=== PATIENT | male | born 1985 | race Caucasian/White ===

== ENCOUNTER 2024-12-29 11:07 | Emergency (ER) | payer MEDICAID, SELFPAY ==
--- OUTSIDE RECORDS SUMMARY | 2024-06-02 05:30 | XMS_ITS ---
Author Organization [facility] Address [address] [place] [address] Care Team Providers Care Junior Financial Analyst Name Role Phone Rebekah Molina Primary Care Provider Adelina Fofana Unavailable [phone] REASON FOR VISIT FILLING Encounters Encounter Location Date Provider Diagnosis [place] [address] [place] [address] 06/02/2024 Rebekah Molina Plan Of Treatment No Information Progress Notes * GILBERT BOOKERJIMBODOB:1985 (39 yo M)Acc No.[id number]:06/02/2024 Patient:?PENNY BOOKER :?Rebekah Molina DDSDOB:1985???Age:39 Y ???Sex:MaleDate:06/02/2024Phone:[phone]:[address] [place], [place] Subjective: * Chief Complaints: * F ILLING * Electronic signature of Rebekah Molina DDS on 12/29/2024 at 11:21 AM ESTSign off status: Pending * Provider: Gloria Molina DDS Date: 06/02/2024 Generated for Printing/Faxing/eTransmitting on:?12/29/2024 11:21 AM EST
--- OUTSIDE RECORDS SUMMARY | 2024-06-09 05:30 | XMS_ITS ---
Author Organization [facility] Address [address] [place] [address] Care Team Providers Care Electronics Hardware Design Engineer Name Role Phone Rebekah Molina Primary Care Provider [phone] Adelina Fofana Unavailable [phone] REASON FOR VISIT FILLING Encounters Encounter Location Date Provider Diagnosis [place] [address] [place] [address] 06/09/2024 Rebekah Molina Plan Of Treatment No Information Progress Notes * GILBERT BOOKERJIMBODOB:1985 (39 yo M)Acc No.[id number]:06/09/2024 Patient:?PENNY BOOKER :?Rebekah Molina DDSDOB:1985???Age:39 Y ???Sex:MaleDate:06/09/2024Phone:[phone]:[address], [place] Subjective: * Chief Complaints: * F ILLING * Electronic signature of Rebekah Molina DDS on 12/29/2024 at 11:20 AM ESTSign off status: Pending * Provider: Gloria Molina DDS Date: 0 06/09/2024 Generated for Printing/Faxing/eTransmitting on:?12/29/2024 11:20 AM EST
[2024-12-29] VITALS (20 sets, daily range): BP systolic 127–156; BP diastolic 68–90; PULSE 67–114; TEMP 36.5; O2SAT 95–99; BMI 21.7
--- OUTSIDE RECORDS SUMMARY | 2024-12-29 11:21 | XMS_ITS | Clinical Summary ---
Author Organization [facility] Address [address] [place] [address] Care Team Providers Care Heavy Machinery Operator Name Role Phone Arnaldo Ace Unavailable Unavailable Arnaldo Ace DO Unavailable [phone] Allergies Active AllergyReactionsCriticalityNoted IykgZondbmatRawybytyfxhDaveecc47/17/2021 Other reaction(s): Unknown Other reaction(s): Unknown Medications No known medications Active Problems No known active problems Social History Tobacco UseTypesPacks/DayYears UsedDateSmoking Tobacco: NeverSmokeless Tobacco: Never Tobacco Cessation:Counseling Given: Not Answered Area Deprivation IndexAnswerDate RecordedNational Score (1-100), lower number is lower ppwe822401/19/2023State Score (1-10), lower number is lower quer00903/22/2022 Data from: https://www.neighborhoodatlas.[facility]/. Last address used for [address] 01/19/2023Sex and Gender InformationValueDate RecordedSex Assigned at BirthNot on fileLegal NrxNjot77/04/2023 1:23 PM EST Gender IdentityNot on fileSexual OrientationNot on file Last Filed Vital Signs Vital SignReadingTime TakenCommentsBlood Igukdahj027/8101/19/2023 3:58 PM EST Rpxzd498201/19/2023 3:58 PM TFQWftvfbhmmcu88.6 ??C (97.8 ??F)01/19/2023 3:58 PM ESTRespiratory Rate--Oxygen Saturation--Inhaled Oxygen Concentration--Weight-- Height--Body Mass Index-- Plan of Treatment Health MaintenanceDue DateLast DoneCommentsAnxiety Xbtkqaebr82/28/2002Depression Mvognfdei10/28/2002HIV Hulhcebpo30/28/2002Hepatitis C Jdtdezrln60/28/2002 DTaP,Tdap,Td Vaccine (1 - Tdap)01/06/2003Hepatitis B Vaccine (1 of 3 - 19+ 3- dose series)01/06/2003HPV Vaccine (1 - 3-dose SCDM series)01/06/2011Lipid Cbsohsklq32/28/2019Covid-19 Vaccine (1 - 2024- season)2024Influenza Vaccine (#1)2024 Insurance Care Teams Team MemberRelationshipSpecialtyStart DateEnd Date Arnaldo Ace Rqpcqscqr07/5/23 Arnaldo Ace DO DivwuwndoNvrijaqbici67/6/23
--- OUTSIDE RECORDS SUMMARY | 2024-12-29 11:21 | XMS_ITS | Patient Health Record ---
Author Organization [facility] Address [address] [place] [address] Care Team Providers Care Appian Developer Name Role Phone Rebekah Molina Primary Care Provider Adelina Fofana Unavailable Dr. Mert Ramey Unavailable [phone] Reason For Referral No Information Encounters Encounter Location Date Provider Diagnosis [facility] [address] [place] [address] 05/25/2024 [facility] [place] [address]/03/2024 [facility] [place] [address]/07/2024[facility] [place] [address]/[facility] for dental examination and cleaning with abnormal findings Z01.21 ; Disturbances in tootheruption K00.6 ; Other dental procedure status Z98.818 ; Dental caries on pit and fissure surface pe netrating into dentin K02.52 ; Complete loss of teeth, unspecified cause, class I K08.101 ; Partialloss of teeth, unspecified cause, class I K08.401 and Necrosis of pulp K04.1F Wdgqmoz309 [facility] [place] [address] [facility] examination and cleaning with abnormal findings Z01.21FHS Ctru[address]69 [facility] [place] [address] 04/13/2024Fiorella Benigno CastilloDental caries on pit and fissure surface penetrating into dentin K02.52S [address] [place] [address] 05/23/2024[facility] GholekarDental caries on pit and fissure surface penetrating into dentin K02.52FHS [address] [place] [address]/ Adelina Benigno CastilloS [address] [place] [address] 06/28/2024[facility]karTrinity Healthk[address] [place] [address] 07/29/2024[facility] [address] [place] [address] 08/30/2024Joseph RizkOther dental procedure status Z98.818[facility] [address] [place] [address]/Joseph RizkComplete loss of teeth, unspecified cause, class I K08.101 and Partial loss of teeth, unspecified cause, class I K08.401FHS [address] [place] [address]/ [facility]Enc[facility] for dental examination and cleaning with abnormal findings Z01.21 Assessments Encounter Date Diagnosis (ICD Code) Assessment Notes Treatment Notes Treatment Clinical Notes Section Notes 08/30/2024 Other dental procedure status (I CD-10 - Z98.818) 09/30/2024omplete loss of teeth, unspecified cause, class I (ICD-10 - K08.101) 02/09/2024Encounter for dental examination and cleaning with abnormal findings (ICD-10 - Z01.21)02/23/2024Encounter for dental examination and cleaning with abnormal findings (ICD-10 - Z01.21)03/02/2024Encounter for dental examination and cleaning with abnormal findings (ICD-10 - Z01.21)04/13/2024Dental caries on pit and fissure surface penetrating into dentin (ICD-10 - K02.52)05/23/2024 Dental caries on pit and fissure surface penetrating into dentin (ICD-10 - K02.52)02/09/2024isturbances in tooth eruption (ICD-10 - K00.6)09/30/2024 Partial loss of teeth, unspecified cause, class I (ICD-10 - K08.401)02/09/2024 Other dental procedure status (ICD-10 - Z98.818)02/09/2024ental caries on pit and fissure surface penetrating into dentin (ICD-10 - K02.52)02/09/2024omplete loss of teeth, unspecified cause, class I (ICD-10 - K08.101)02/09/2024artial loss of teeth, unspecified cause, class I (ICD-10 - K08.401)02/09/2024Necrosis of pulp (ICD-10 - K04.1) Plan Of Treatment No Information Insurance Providers Payer Name Payer Address Payer Phone Subscriber Number Group Number Insured Name Patient Relationship to Insured Coverage Start Date Coverage End Date Dental Anthem [place] Medicaid [address] [address] [place] [address] [id number] ANOHMAGI [id number] PENNY BOOKER Self - patient is the insured Dental Wrap [facility] [address] [place] [phone] [id number] BOOKERelf - patient is the [id number] 2024Dental [place] DQ Terminated [address] [place] [id number] TIFFANY BOOKERelf - patient is the [id number] Wrap [facility] [place] BCBS Termed [address] [place] [phone] [id number], MATTHEWSelf - patient is the [id number] 2022 2024ental Anthem [place] MedicaidPO [address] [address] [place] [address] [phone], MATTHEWSelf - patient is the [id number] 2024 2024
--- OUTSIDE RECORDS SUMMARY | 2024-12-29 11:21 | XMS_ITS | Clinical Summary ---
Author Organization [facility] Address [address] [place] [address] Care Team Providers Care Non Destructive Evaluation Specialist Name Role Phone Zack Wise MD, [facility] Primary Care Provider + Allergies Active AllergyReactionsCriticalityNoted KbiqTduugkjmSkmwmasekxbHvvijqb95/17/2021 Other reaction(s): Unknown Medications MedicationSigDispense QuantityRefillsLast FilledStart DateEnd DateStatus famotidine (Pepcid) 20 mg tablet Take 20 mg by mouth twice a day.04/26/2022ctive meloxicam (Mobic) 15 mg tablet 12/22/2022ctive OLANZapine zydis (ZyPREXA) 5 mg disintegrating tablet Take 5 mg by mouth at bedtime.Active Active Problems ProblemNoted DateDiagnosed DateClosed displaced fracture of base of second metacarpal bone of right hand with routine raijbau68/Hand pain, right Social History Tobacco UseTypesPacks/DayYears UsedDateSmoking Tobacco: FormerCigarettes Smokeless Tobacco: Former Tobacco Cessation:Counseling Given: Not Answered Alcohol UseStandard Drinks/WeekCommentsNever0 (1 standard drink = 0.6 oz pure alcohol)Humiliation, Afraid, Rape, and Kick questionnaireAnswerDate Recorded Within the last year, have you been afraid of your partner or ex-partner?No 03/12/2023Within the last year, have you been humiliated or emotionally abused in other ways by your partner or ex-partner?No03/12/2023Within the last year, have you been kicked, hit, slapped, or otherwise physically hurt by your partner or ex-partner?No03/12/2023Within the last year, have you been raped or forced to have any kind of sexual activity by your partner or ex-partner?No03/12/2023HQ-2 AnswerDate RecordedPatient Health Questionnaire-2 Khfwx942UT Safety & EnvironmentAnswerDate RecordedWithin the last year, have you been afraid of your partner or ex-partner?No03/12/2023Within the last year, have you been humiliated or emotionally abused in other ways by your partner or ex-partner?No03/12/2023 Within the last year, have you been kicked, hit, slapped, or otherwise physically hurt by your partner or ex-partner?No03/12/2023Within the last year, have you been raped or forced to have any kind of sexual activity by your part ner or ex-partner?No03/12/2023hysically or Sexually AbusedNot on file03/12/2023 Sex and Gender InformationValueDate RecordedSex Assigned at BirthNot on file Legal LtnIcta76/15/2023 1:39 PM ESTGender IdentityNot on fileSexual Orientation Not on file Last Filed Vital Signs Vital SignReadingTime TakenCommentsBlood Pressure--Pulse--Temperature-- Respiratory Rate--Oxygen Saturation--Inhaled Oxygen Concentration--Nxygub14.9 kg (174 lb)03/12/2023 9:03 AM IZZZlxlcu735.9 cm (6')03/12/2023 9:03 AM ESTBody Mass Index23.6003/12/2023 9:03 AM EST Plan of Treatment Health MaintenanceDue DateLast DoneCommentsDepression Bhualozih15/28/1996 Varicella Vaccines (1 of 2 - 13+ 2-dose series)01/06/1997Hepatitis B Vaccines (1 of 3 - 19+ 3-dose series)01/06/2003Adult Rimnusj7901/06/2006HPV Vaccines (1 - 3- dose SCDM series)01/06/2011Influenza Vaccine (#1)2024Zoster Vaccines (1 of 2)01/06/2034HIB VaccinesAged OutNo longer eligible based on patient's age to complete this topicIPV VaccinesAged OutNo longer eligible based on patient's age to complete this topicMeningococcal B VaccineAged OutNo longer eligible based on patient's age to complete this topicMeningococcal VaccineAged OutNo longer eligible based on patient's age to complete this topicPneumococcal Vaccine: Pediatrics (0 to 5 Years) and At-Risk Patients (6 to 64 Years)Aged OutNo longer eligible based on patient's age to complete this topicRotavirus VaccinesAged Out No longer eligible based on patient's age to complete this topic Insurance Care Teams Team MemberRelationshipSpecialtyStart DateEnd Megha Dixon Jr., MD [address] [place] [address] PCP - Ltzxanu55/17/23
--- OUTSIDE RECORDS SUMMARY | 2024-12-29 11:21 | XMS_ITS | Clinical Summary ---
Author Organization [facility] Address [address] [place] [address] Care Team Providers Care Film Numberer Name Role Phone Ian Dixon DO Primary Care Provider [phone] Allergies Active AllergyReactionsCriticalityNoted DateCommentsBee VenomAnaphylaxisHigh 9398FeqsfipvjuwBpohgwd16/13/2023 Medications MedicationSigDispense QuantityRefillsLast FilledStart DateEnd DateStatus Toprol XL 25 MG 24 hr tablet Take 25 mg by mouth5Active pantoprazole (ProtoNix) 40 MG EC tablet Indications:Gastroesophageal reflux disease without esophagitisTake 1 tablet (40 mg) by mouth in the morning. Take before meals. Do not crush, chew, or split. 30 tablet 5Active Active Problems ProblemNoted DateDiagnosed EnbaYperwqm21/23/2024Closed displaced fracture of base of second metacarpal bone of right hand with routine hvlovvo5401/27/2023Hand pain, right01/27/2023 Encounters DateTypeDepartmentCare LkakCfangdxcqom63/20/2025 11:30 AM EDTAncillary Procedure [facility] [address] [facility] [address] [place] [address] Joint pain in both hands11/28/2024 10:40 AM EDTOffice Visit [facility] [address] [facility] [address] [place] [address] Lon Jimenez PA Joint pain in both hands (Primary Dx); Mitral valve prolapse; Other fatigue; Gastroesophageal reflux disease without esophagitis; Lrrfqzqwoojaha32/20/2025Results Follow-Up [facility] [address] [facility] [address] [place] [address] Lon Jimenez PA XR hand 3+ views right, CBC and differential, Comprehensive metabolic panel, Additional followed-upresults: 5Bamboo flowsheet [facility] [address] [place] [address] Lon Jimenez PA 11/28/20247568Pfcddu805Abstract [facility] [address] [place] [address] Ian Dixon DO from Last 3 Months Family History RelationNameStatusCommentsFatherAliveMotherAlive Social History Tobacco UseTypesPacks/DayYears UsedDateSmoking Tobacco: FormerCigarettesQuit: 02/09/2013Smokeless Tobacco: FormerQuit: 02/10/2020 Tobacco Cessation:Counseling Given: Yes Alcohol UseStandard Drinks/WeekCommentsNever0 (1 standard drink = 0.6 oz pure alcohol)chocolate, coffeePHQ-2AnswerDate RecordedPatient Health Questionnaire-2 Hleky990Sex and Gender InformationValueDate RecordedSex Assigned at BirthNot on fileLegal YkaSvat5004/23/2022 7:03 PM EDTGender IdentityNot on file Sexual OrientationNot on file Last Filed Vital Signs Vital SignReadingTime TakenCommentsBlood Sgkcyupv534/7410 10:55 AM EDT Hipuy281311/28/2024 10:55 AM DKDKxjrhpctzli87.9 ??C (98.4 ??F)11/28/2024 10:55 AM EDTRespiratory Rate--Oxygen Gxqokfnxhi77%11/28/2024 10:55 AM EDTInhaled Oxygen Concentration--Etequt06.8 kg (167 lb)11/28/2024 10:55 AM XWLOoxitv044.4 cm (6' 1 )11/28/2024 10:55 AM EDTBody Mass Index22.031 10:55 AM EDT Plan of Treatment Health MaintenanceDue DateLast DoneCommentsPneumococcal Vaccine: Pediatrics (0 to 5 Years) and At-Risk Patients (6 to 64 Years) (1 of 2 - PCV)01/06/2003COVID- 19 Vaccine (1 - season)2024Influenza Vaccine (#1)2024 Procedures Procedure NamePriorityDate/TimeAssociated DiagnosisCommentsANA SCREEN W/REFLEX Suagwol1311/28/2024 12:21 PM EDT Joint pain in both hands Mitral valve prolapse Other fatigue Gastroesophageal reflux disease without esophagitis Polyarthralgia RHEUMATOID AJCVAFWwhkvae23/20/2025 12:21 PM EDT Joint pain in both hands Mitral valve prolapse Other fatigue Gastroesophageal reflux disease without esophagitis Polyarthralgia SED RATE BY MODIFIED EGOPOKJQKMZlbthyx49/20/2025 12:21 PM EDT Joint pain in both hands Mitral valve prolapse Other fatigue Gastroesophageal reflux disease without esophagitis Polyarthralgia COMPREHENSIVE METABOLIC HXJITQzavifs30/20/2025 12:21 PM EDT Joint pain in both hands Mitral valve prolapse Other fatigue Gastroesophageal reflux disease without esophagitis Polyarthralgia CBC (INCLUDES DIFF/PLT)Rkjvqwe7111/28/2024 12:21 PM EDT Joint pain in both hands Mitral valve prolapse Other fatigue Gastroesophageal reflux disease without esophagitis Polyarthralgia XR HAND 3+ VIEWS CWZSFXhsevaj93/20/2025 11:37 AM EDT Joint pain in both hands from Last 3 Months Results * Sedimentation rate, automated (11/28/2024 12:21 PM EDT)ComponentValueRef Range Test MethodAnalysis TimePerformed AtPathologist SignatureSed Rate-Hpzkkwqxdd72 - 15 mm/hrLABCORPSpecimen (Source)Anatomical Location / LateralityCollection Method / VolumeCollection TimeReceived TimeBloodVenous blood specimen / Hybvxmn0011/28/2024 12:21 PM EDT1 Narrative [facility] - 11/29/2024 3:07 PM EDT Performed at: 01 - [facility] [address], [address], [place], [place] ??[id number] Cell Attendant: Dyana Jovel MD, Phone: ??[phone] Authorizing ProviderResult TypeResult StatusLon QUINN BLOOD ORDERABLES Final ResultPerforming OrganizationAddressCity/State/ZIP CodePhone Number [facility] * CBC and differential (11/28/2024 12:21 PM EDT)ComponentValueRef RangeTest MethodAnalysis TimePerformed AtPathologist SignatureWBC6.03.4 - 10.8 x10E3/uL LABCORPRBC5.294.14 - 5.80 x10E6/fIYGRBOYYWiq69.913.0 - 17.7 g/nASVUXLOWNcn51.9 37.5 - 51.0 %XEGGOVSMHM0502 - 97 gPTSOJBXEEAS26.226.6 - 33.0 jxNNAEKPCLIVV04.2 31.5 - 35.7 g/mZEDMQCAVHFN82.211.6 - 15.4 %RTKQTSDKualyufic213818 - 450 x10E3/sEQJRQCMMAwtkwuuavgt23Jpf Estab. %MUZCKLDMsygci50Ain Estab. %[facility] Czsqhossa1Aax Estab. %LWGGXNBQwy9Bkz Estab. %JYFXHYAPxfkt8Lqd Estab. %[facility] Neutrophils Abs3.71.4 - 7.0 x10E3/uLLABCORPLymphs Abs1.60.7 - 3.1 x10E3/uL [facility]ABCORPMonocytesAbs0.50.1 - 0.9 x10E3/uLLABCORPEos Abs0.20.0 - 0.4 x10E3/uL [facility]ABC[facility]PBaso Abs0.10.0 - 0.2 x10E3/uLLABCORPImmature Myjzwkmonrgd4Bdi Estab. % [facility]ABCORPImmature Grans Abs0.00.0 - 0.1 x10E3/uLLABCORPSpecimen (Source) Anatomical Location / LateralityCollection Method / VolumeCollection Time Received TimeBloodVenous blood specimen / Jdmfrzl7311/28/2024 12:21 PM EDT 11/28/2024 Narrative [facility] - 11/29/2024 3:07 PM EDT Performed at: 01 - [facility] [address], [address], [place], [place] ??[id number] Cell Attendant: Dyana Jovel MD, Phone: ??[phone] Authorizing ProviderResult TypeResult StatusLon Jimenez PALAB BLOOD ORDERABLES Final ResultPerforming OrganizationAddressCity/State/ZIP CodePhone Number [facility] * Rheumatoid factor (11/28/2024 12:21 PM EDT)ComponentValueRef RangeTest Method Analysis TimePerformed AtPathologist SignatureRHEUMATOID FACTOR<10.0<14.0 IU/mLLABCORPSpecimen (Source)Anatomical Location / LateralityCollection Method / VolumeCollection TimeReceived TimeBloodVenous blood specimen / Unknown 11/28/2024 12:21 PM EDT1 Narrative [facility] - 11/29/2024 3:07 PM EDT Performed at: 02 - [address] ??[id number] Cell Attendant: David Matamoros PhD, Phone: ??[phone] Authorizing ProviderResult TypeResult StatusLon Jimenez PALAB BLOOD ORDERABLES Final ResultPerforming OrganizationAddressCity/State/ZIP CodePhone Number [facility] * VINICIUS (11/28/2024 12:21 PM EDT)ComponentValueRef RangeTest MethodAnalysis Time Performed AtPathologist SignatureANA DIRECTNegativeNegativeLABCORPSpecimen (Source)Anatomical Location / LateralityCollection Method / VolumeCollection TimeReceived TimeBloodVenous blood specimen / Qqmptdq9611/28/2024 12:21 PM EDT 11/28/2024 Narrative [facility] - 11/29/2024 3:07 PM EDT Performed at: 02 - [address] ??[id number] Cell Attendant: David Matamoros PhD, Phone: ??[phone] Authorizing ProviderResult TypeResult StatusLon Jimenez PALAB BLOOD ORDERABLES Final ResultPerforming OrganizationAddressCity/State/ZIP CodePhone Number [facility] * (ABNORMAL) Comprehensive metabolic panel (11/28/2024 12:21 PM EDT)Component ValueRef RangeTest MethodAnalysis TimePerformed AtPathologist SignatureGlucose 8370 - 99 mg/aAMVFMJXDSKC815 - 24 mg/dLLABCORPCreat0.900.76 - 1.27 mg/dL BYTOMABLPLH976>59 mL/min/1.73LABC[facility]PBUN/Creat Mjnlp641 - 06SAUJQRAYenwms637236 - 144 mmol/[facility]ABC[facility]PPotassium4.53.5 - 5.2 mmol/OMKDEYWYQoilqpyl3477 - 106 mmol/[facility]ABCORPCarbon Maysbjk83(H)20 - 29 mmol/SSENXDZIElxdeko91.18.7 - 10.2 mg/dLLABCORPProtein Total7.66.0 - 8.5 g/dLLABCORPAlbumin5.04.1 - 5.1 g/dL [facility]PGlobulin Total2.61.5 - 4.5 g/dLLABCORPBili Total0.70.0 - 1.2 mg/dL [facility]ABCORPAlk Mltjkjuqcme9406 - 123 IU/IZRQYYNQPYL5665 - 59 IU/RVEXZZFZUEO049 - 50 IU/[facility]PSpecimen (Source)Anatomical Location / LateralityCollection Method / VolumeCollection TimeReceived TimeBloodVenous blood specimen / Ljgnswk7711/28/2024 12:21 PM EDT1 Narrative [facility] - 11/29/2024 3:07 PM EDT Performed at: 01 - [place] [address] [facility], [address], [place], [place] ??[id number] Cell Attendant: Dyana Jovel MD, Phone: ??[phone] Authorizing ProviderResult TypeResult StatusRynithya QUINN BLOOD ORDERABLES Final ResultPerforming OrganizationAddressCity/State/ZIP CodePhone Number [facility] * XR hand 3+ views right (11/28/2024 11:37 AM EDT)Anatomical RegionLaterality ModalityUpper Extremities, HandRightRadiographic ImagingSpecimen (Source) Anatomical Location / LateralityCollection Method / VolumeCollection Time Received Time11/28/2024 12:54 PM EDT Impressions 11/28/2024 12:55 PM EDT No acute findings. ELECTRONICALLY SIGNED BY: Ke Horner MD Narrative 11/28/2024 12:55 PM EDT Right hand 3 views. HISTORY: Chronic pain for several years becoming progressive. FINDINGS: No acute fracture, dislocation, or bone lesions identified. Possible remote healed fracture, right fifth metacarpal. Procedure Note Ke Horner MD - 11/28/2024 Right hand 3 views. HISTORY: Chronic pain for several years becoming progressive. FINDINGS: No acute fracture, dislocation, or bone lesions identified. Possibleremote healed fracture, right fifth metacarpal. IMPRESSION: No acute findings. ELECTRONICALLY SIGNED BY: Ke Horner MD Authorizing ProviderResult TypeResult StatusLon Jimenez PAIMG XR PROCEDURES Final Result from Last 3 Months Insurance Care Teams Team MemberRelationshipSpecialtyStart DateEnd Date Ian Dixon DO [address] [facility] [address] [place] [address] PCP - GeneralFamily Medicine06/17/22
--- OUTSIDE RECORDS SUMMARY | 2024-12-29 11:21 | XMS_ITS | Clinical Summary ---
Author Organization [facility] Address [id number] [address] [place] [address] Care Team Providers Care Clinical Laboratory Aides Teacher Name Role Phone No Pcp, No Pcp Primary Care Provider Unavailabl e Allergies Active AllergyReactionsCriticalityNoted CubxFmeaslpjVzicvzqyabn89/17/2021 Other reaction(s): Unknown Medications MedicationSigDispense QuantityRefillsLast FilledStart DateEnd DateStatus ondansetron ODT (ZOFRAN ODT) 4 mg disintegrating tablet Dissolve 1 tablet (4 mg total) on tongue every 8 (eight) hours as needed for nausea for up to 10 doses. 10 tablet 04/26/2022ctive famotidine (PEPCID) 20 mg tablet Take 1 tablet (20 mg total) by mouth in the morning and 1 tablet (20 mg total) before bedtime. 20 tablet 04/26/2022ctive Social History Tobacco UseTypesPacks/DayYears UsedDateSmoking Tobacco: Never AssessedAlcohol UseStandard Drinks/WeekCommentsNot Currently0 (1 standard drink = 0.6 oz pure alcohol)ChildcareAnswerDate UnhbbzakVpabukpvdWzzmaxy29/12/2019EmploymentAnswer Date CcidsuhvNrbytozbeuRewwsvu18/12/2019Hunger ScreeningAnswerDate Recorded Within the past 12 months we worried whether our food would run out before we got money to buy more.Never True04/25/2022Within the past 12 months the food we bought just didn't last and we didn't have money to get more.Never True 04/25/2022Sex and Gender InformationValueDate RecordedSex Assigned at BirthNot on fileLegal BygEtgv6709/14/2014 11:55 AM EDTGender IdentityNot on fileSexual OrientationNot on file Last Filed Vital Signs Vital SignReadingTime TakenCommentsBlood Qnjqojoj101/8804/26/2022 12:50 AM EDT Suvga196804/26/2022 12:50 AM JETNsrhskcuacv39.7 ??C (98 ??F)04/25/2022 9:27 PM EDT Respiratory Gnca735304/26/2022 12:50 AM EDTOxygen Uewgejjres10%04/26/2022 12:50 AM EDTInhaled Oxygen Concentration--Oewxdc73.4 kg (175 lb)04/25/2022 9:10 PM EDT Nckdlg629.4 cm (6' 1 )04/25/2022 9:10 PM EDTBody Mass Index23.0904/25/2022 9:10 PM EDT Plan of Treatment Not on file Medical Devices Not on file Insurance Care Teams Team MemberRelationshipSpecialtyStart DateEnd Date No Pcp, [place] [address] [facility]
--- NOTE | 2024-12-29 11:27 | ECG_ITS ---
[facility] Test Date: 2024-12-29 Pat Name: PENNY BOOKER Department: Room: - Gender: Male Shroud Line Tier: : 1985 Requested By: Order Number: [id number] Reading MD: OMKAR LANZA M.D. Measurements Intervals Magazine Rate: 96 P: 85 MO: 162 QRS: 87 QRSD: 90 T: 79 QT: 352 QTc: 405 Interpretive Statements 1100 Sinus rhythm 9110 normal ECG Compared to ECG 12/12/2019 08:20:17 ST (T wave) deviation no longer present Electronically Signed On 12-29-2024 19:21:49 EST by OMKAR LANZA M.D.
--- NOTE | 2024-12-29 11:27 | XR_ITS ---
The [address] [address] Patient Name: PENNY BOOKER MRN: [id number] date: 1985 Sex: M Assigned Patient Location: ER Current Patient Location: ER Accession/Order Number: [id number] Exam Date: 12/29/2024 11:35 Report Date: 12/29/2024 12:29 At the request of: VIK PINEDA MD Procedure: XR chest 1V Single view chest: CLINICAL HISTORY: CP COMPARISON: None FINDINGS: The heart is normal in size. The lungs are clear. The pulmonary vasculature is normal. Mediastinum and hilar regions are unremarkable. No pleural effusions are seen. Visualized bones are intact. XR/XR chest 1V IMPRESSION: NO ACUTE PROCESS. Impression dictated by: Mert Watson Jr. DRudolphORudolph 12/29/2024 12:29 PM Dictation Location: [place] [address] Electronically authenticated by: [id number] Y Date: 12/29/2024 12:29
--- NOTE | 2024-12-29 11:28 | ED_ITS ---
HPI HPI - General Adult General Chief complaint: Chest Pain Stated complaint: CHEST PAIN, PALPITATIONS, SHORTNESS OF BREATH Time Seen by Provider: 12/29/24 11:22 Source: patient Mode of arrival: walk-in Limitations: no limitations History of Present Illness HPI narrative: 39-year-old male presents to the emergency department for chest pain and feeling short of breath. It is on the left side of his chest and he has felt this way for several days. No trauma or fever or productive cough. He states he has not been able to sleep. He states he has a history of PTSD and stopped all of his medications except his metoprolol which he states he has been taking. Related Data Home Medications ?Medication ?Instructions ?Recorded ?Confirmed metoprolol succinate 25 mg mg PO 12/29/24 tablet,extended release 24 hr Allergies Allergy/AdvReac Type Severity Reaction Status Date / Time bee venom protein (honey bee) Allergy Anaphylaxis Verified 12/29/24 11:18 Penicillins Allergy unknown Verified 12/29/24 11:18 Opioid HPI Opioid Management Most Recent Opioid Data: Last Pain Scale 9 Today, 11:12 Ur Phencyclidine Scrn, (NEGATIVE) Negative Today, 11:32 Review of Systems ROS Narrative A ten point review of systems is negative except as noted above. Exam Narrative Exam Narrative: Nurses note and vital signs reviewed General:The patient appears well and in no apparent distress.Patient is resting comfortably on cart. Skin:Warm, dry, no pallor noted.There is no rash noted. Head:Normocephalic, atraumatic Eye: Normal conjunctiva, no drainage Ears, Nose, Mouth, and Throat: oral mucosa is moist. Nares patent. Cardiovascular:Regular Rate and Rhythm, tachycardic Respiratory:Patient is in no distress, no accessory muscle use, lungs are clear to auscultation, no wheezing, rales or rhonchi. Breath sounds are equal Back:non-tender, no CVA tenderness bilaterally to percussion. GI: Soft and nontender Musculoskeletal: The patient has no evidence of calf tenderness, no pitting edema, symmetrical pulses noted bilaterally Neurological:A&O x4, normal speech Psychiatric:Cooperative, appears quite anxious Constitutional Vital Signs, click to edit/add: Last Vital Signs Temp 97.7 F 12/29/24 11:12 Pulse 75 12/29/24 13:00 Resp 9 L 12/29/24 13:00 BP 128/77 12/29/24 13:00 Pulse Ox 97 12/29/24 13:00 O2 Del Method Room Air 12/29/24 11:12 Course Vital Signs Vital signs: Vital Signs Temperature 97.7 F 12/29/24 11:12 Pulse Rate 114 H 12/29/24 11:12 Respiratory Rate 28 H 12/29/24 11:12 Blood Pressure 156/87 H 12/29/24 11:12 Pulse Oximetry 99 12/29/24 11:12 Oxygen Delivery Method Room Air 12/29/24 11:12 Temperature 97.7 F 12/29/24 11:12 Pulse Rate 75 12/29/24 13:00 Respiratory Rate 9 L 12/29/24 13:00 Blood Pressure 128/77 12/29/24 13:00 Pulse Oximetry 97 12/29/24 13:00 Oxygen Delivery Method Room Air 12/29/24 11:12 Medical Decision Making MDM Narrative Medical decision making narrative: His workup is negative. There is no evidence of IN or pneumothorax, or PE. He is medically clear. He has spoken to mental health services and they have arranged follow-up for him. They will call him tomorrow to make an appointment. Treatment diagnosis and follow-up were discussed with the patient. He was feeling improved after 2.5 mg of IV Valium was administered. Differential Diagnosis Differential Diagnosis: Pneumothorax, PE, IN, anxiety Lab Data Lab results reviewed: Yes I reviewed the patient's lab results Labs: Lab Results 12/29/24 12/29/24 Range/Units 11:20 11:32 WBC 7.8 (4.0-11.0) 10^3/uL RBC 5.13 (4.70-6.10) 10^6/uL Hgb 14.7 (14.0-18.0) g/dL Hct 42.0 (42.0-54.0) % MCV 81.9 (80.0-94.0) fL MCH 28.7 (25.9-34.0) pg MCHC 35.0 (29.9-35.2) g/dL RDW 13.1 (11.0-15.0) % Plt Count 372 (150-450) 10^3/uL MPV 8.9 L (9.5-13.5) fL Neut % (Auto) 72.5 (43.0-75.0) % Lymph % (Auto) 17.9 L (20.5-60.0) % [place] % (Auto) 7.2 (1.7-12.0) % Eos % (Auto) 1.2 (0.9-7.0) % Baso % (Auto) 0.9 (0.2-2.0) % Neut # (Auto) 5.7 (1.4-6.5) 10^3/uL Lymph # (Auto) 1.4 (1.2-3.8) 10^3/uL [place] # (Auto) 0.6 (0.3-0.8) 10^3/uL Eos # (Auto) 0.1 (0.0-0.7) 10^3/uL Baso # (Auto) 0.1 (0.0-0.1) 10^3/uL Abs Immat Gran (auto) 0.02 (0.00-0.03) 10^3/uL Imm/Tot Granulo (auto) 0.3 (0.0-0.5) % D-Dimer <0.19 (<=0.59) mg/L FEU Sodium 138 (136-145) mmol/L Potassium 3.7 (3.5-5.1) mmol/L Chloride 101 (98-107) mmol/L Carbon Dioxide 25.5 (21.0-32.0) mmol/L Anion Gap 15.2 BUN 13.0 (7.0-18.0) mg/dL Creatinine 0.91 (0.70-1.30) mg/dL Est GFR ( Amer) >60 (>=60 mL/min/1.73m^2) Est GFR (Non-Af Amer) >60 (>=60 mL/min/1.73m^2) BUN/Creatinine Ratio 14.3 Glucose 120 H (74-106) mg/dL Calcium 9.5 (8.5-10.1) mg/dL Troponin I High Sens 4.2 (4.0-76.1) pg/mL Urine Color Yellow (YELLOW) Urine Clarity Clear (CLEAR) Urine pH 6.0 (5.0-9.0) Ur Specific [place] 1.025 (1.005-1.025) Urine Protein Trace (NEG/TRACE) mg/dL Urine Glucose (UA) Negative (NEGATIVE) mg/dL Urine Ketones Trace A (NEGATIVE) mg/dL Urine Occult Blood Negative (NEGATIVE) Urine Nitrite Negative (NEGATIVE) Urine Bilirubin Negative (NEGATIVE) Urine Urobilinogen 1.0 (0.2-1.0) EU/dL Ur Leukocyte Esterase Trace A (NEGATIVE) Urine RBC 0-2 (0-2) #/HPF Urine WBC None seen (NONE SEEN) #/HPF Ur Squamous Epith Cells Rare (NONE/RARE) #/LPF Urine Crystals None seen (None Seen) #/HPF Urine Bacteria Trace A (NONE SEEN) #/HPF Urine Casts None seen (NONE SEEN) #/LPF Urine Mucus Small A (NONE SEEN) Salicylates <2.8 (<=19.9) mg/dL Urine Opiates Screen Negative (NEGATIVE) Ur Buprenorphine Scrn Negative (NEGATIVE) Ur Oxycodone Screen Negative (NEGATIVE) Urine Methadone Screen Negative (NEGATIVE) Acetaminophen <2.0 L (10.0-30.0) ug/mL Ur Barbiturates Screen Negative (NEGATIVE) U Tricyclic Antidepress Negative (NEGATIVE) Ur Phencyclidine Scrn Negative (NEGATIVE) Ur Amphetamines Screen Negative (NEGATIVE) U Methamphetamines Scrn Negative (NEGATIVE) U Benzodiazepines Scrn Negative (NEGATIVE) Urine Cocaine Screen Negative (NEGATIVE) U Cannabinoids Screen Positive A (NEGATIVE) Ethanol Quant <3 mg/dL Imaging Data Chest x-ray: Radiologist's impression: ITS Impressions Chest X-Ray 12/29/24 11:27 IMPRESSION: NO ACUTE PROCESS. Impression dictated by: Mert Watson Jr., D.O. 12/29/2024 12:29 PM Dictation Location: [place] [address] Electronically authenticated by: [id number] Y Date: 12/29/2024 12:29 ECG Data Attestation: I personally reviewed and interpreted this ECG as follows: (EKG on my interpretation shows sinus rhythm with rate of 96 and no acute change) Discharge Plan Discharge Chief Complaint: Chest Pain Clinical Impression: Chest pain, Anxiety Patient Disposition: Home, Self-Care Time of Disposition Decision: 13:38 Condition: Good Mode of Transportation: Private Vehicle Prescriptions / Home Meds: No Action metoprolol succinate 25 mg tablet extended release 24 hr PO Print Language: Greenlandic Instructions: Chest Pain (ED), Anxiety (ED) Referrals: Megha COBOS [Primary Care Provider, Family Practice] - 1 week
[2024-12-29 11:37] LABS: Hematocrit 42.0 % (42.0-54.0); Hemoglobin 14.7 g/dL (14.0-18.0); Immature Granulocytes Abs Auto 0.02 10^3/uL (0.00-0.03); Immature Granulocytes Pct Auto 0.3 % (0.0-0.5); Lymphocytes Absolute Auto 1.4 10^3/uL (1.2-3.8); Mean Corpuscular HGB Conc 35.0 g/dL (29.9-35.2); Mean Corpuscular Hemoglobin 28.7 pg (25.9-34.0); Mean Corpuscular Volume 81.9 fL (80.0-94.0); Platelet Count 372 10^3/uL (150-450); Red Blood Count 5.13 10^6/uL (4.70-6.10); White Blood Count 7.8 10^3/uL (4.0-11.0)
[2024-12-29 11:39] LABS: Glucose Urine UA NEGATIVE (NEGATIVE)
[2024-12-29] MEDS: DIAZEPAM 10 MG/2 ML SYRINGE 2.5 MG IV (11:41)
[2024-12-29 11:45] LABS: Crystals Seen? None Seen #/HPF (None Seen)
[2024-12-29 11:46] LABS: Cast Seen? NONE SEEN #/LPF (NONE SEEN)
[2024-12-29 11:47] LABS: Cannabinoid Screen Urine POSITIVE (NEGATIVE); Methamphetamines Screen Urine NEGATIVE (NEGATIVE)
[2024-12-29 11:48] LABS: Tricyclic Antidepressant Urine NEGATIVE (NEGATIVE)
[2024-12-29 12:10] LABS: Anion Gap 15.2; Blood Urea Nitrogen 13.0 mg/dL (7.0-18.0); Calcium 9.5 mg/dL (8.5-10.1); Carbon Dioxide 25.5 mmol/L (21.0-32.0); Chloride 101 mmol/L (98-107); Estimated GFR (African America >60 (>=60 mL/min/1.73m^2); Estimated GFR (Non-African Ame >60 (>=60 mL/min/1.73m^2); Glucose 120 mg/dL (74-106); Potassium 3.7 mmol/L (3.5-5.1); Salicylate <2.8 mg/dL (<=19.9); Sodium 138 mmol/L (136-145)
[2024-12-29 12:11] LABS: Acetaminophen <2.0 ug/mL (10.0-30.0)
== END 2024-12-29 13:40 | disposition home or self-care (01) ==
PROVIDERS: Emergency Provider Emergency Medicine; PCP Family Medicine
DX: R07.9 Chest pain, unspecified (principal); F41.9 Anxiety disorder, unspecified; F43.10 Post-traumatic stress disorder, unspecified; Z79.899 Other long term (current) drug therapy
CPT/HCPCS: 36415; 71045; 80048; 80179; 80307; 80320; 80329; 81001; 84484; 85025; 85378; 93005; 96374; 99285; J3360